=== PATIENT | male | born 1985 | race Caucasian/White ===

== ENCOUNTER 2025-02-02 18:05 | Emergency (ER) | payer SELFPAY ==
[2025-02-02 18:12] VITALS: BP 152/85; PULSE 83; RESP 16; TEMP 36.8; O2SAT 97; BMI 30.8
--- NOTE | 2025-02-02 18:18 | ECG_ITS ---
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 Measurements Intervals [place] Rate: 83 P: 48 LA: 136 QRS: 31 QRSD: 116 T: 15 QT: 353 QTc: 417 Interpretive Statements SINUS RHYTHM MODERATE INTRAVENTRICULAR CONDUCTION DELAY [110+ ms QRS DURATION] No previous ECG available for comparison Electronically Signed On 02-03-2025 07:39:09 CDT by Evans Vuong M.D. [email or web address]
--- NOTE | 2025-02-02 18:57 | XRR_ITS ---
PROCEDURE INFORMATION: Exam: XR Chest Exam date and time: 02/02/2025 9:58 PM Age: 39 years old Clinical indication: Chest pressure; C/O chest pain; Additional info: Cp TECHNIQUE: Imaging protocol: Radiologic exam of the chest. Views: 1 view. COMPARISON: No relevant prior studies available. FINDINGS: Lungs: Unremarkable. No consolidation. Pleural spaces: Unremarkable. No pleural effusion. No pneumothorax. Heart/Mediastinum: Unremarkable. No cardiomegaly. Bones/joints: Unremarkable. XR/XR chest 1V portable [id number] IMPRESSION: No acute cardiopulmonary findings.
[2025-02-02 19:45] LABS: Basophils # 0.1 10^3/uL (0.0-0.1); Basophils % 0.7 %; Eosinophils # 0.2 10^3/uL (0.0-0.8); Eosinophils % 2.4 %; Hematocrit 43.8 % (37-53); Lymphocytes # 4.3 10^3/uL (0.8-4.8); Lymphocytes % 42.4 %; Mean Corpuscular Hemoglobin 29.7 pg (27-33); Mean Corpuscular Volume 87.3 fl (82-101); Mean Platelet Volume 10.8 fL (7.4-10.4); Monocytes # 0.8 10^3/uL (0.2-0.9); Monocytes % 7.7 %; Neutrophils # 4.68 10^3/uL (1.8-7.7); Neutrophils % 46.5 %; Nucleated Red Blood Cells % 0 %; Platelet Count 268 10^3/cmm (157-399); Red Blood Count 5.02 10^6/uL (3.85-5.65); Red Cell Distribution Width 12.7 % (12.1-15.1); White Blood Count 10.07 10^3/uL (3.29-11.43)
[2025-02-02 20:08] LABS: Anion Gap 16.8 (5-19); Blood Urea Nitrogen 19 mg/dL (6-20); Calcium 9.8 mg/dL (8.5-10.5); Carbon Dioxide 26 mmol/L (22-29); Chloride 102 mmol/L (98-107); Creatinine Clr Calc Pharmacy 115.0122; Glomerular Filtration Rate 82.8 mL/min (90-130); Glucose 99 mg/dL (65-115); Osmolality Calculated 294 mOsm/kg (285-295); Potassium 3.8 mmol/L (3.5-5.1); Sodium 141 mmol/L (136-145)
[2025-02-02 21:23] LABS: Troponin(5th) Baseline < 6 ng/L (0-15)
[2025-02-02 21:44] LABS: Troponin 5 2HR < 6.0 ng/L (0-15); Troponin 5 2HR Delta 0 ABS# (0-10)
--- NOTE | 2025-02-02 22:20 | ECG_ITS ---
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 Measurements Intervals [place] Rate: 66 P: 39 MD: 165 QRS: 27 QRSD: 118 T: 15 QT: 373 QTc: 393 Interpretive Statements SINUS RHYTHM MODERATE INTRAVENTRICULAR CONDUCTION DELAY [110+ ms QRS DURATION] Compared to ECG 02/02/2025 18:12:58 No significant changes Electronically Signed On 02-03-2025 07:44:44 CDT by Evans Vuong M.D. [email or web address]
--- NOTE | 2025-02-02 23:54 | W.ED.CHESTPA ---
HPI - Chest Pain General: Chief Complaint: Chest Pain Stated Complaint: CP pain in heart Time Seen by Provider: 02/02/25 21:55 Source: patient Mode of arrival: ambulatory Limitations: no limitations History of Present Illness: Patient is a 39-year-old male who presents emergency department complaining of left chest pain chronically for the past few months. States he does not see a regular doctor does not take any medications, he was concerned while after a binge drinking episode a couple days ago his left chest pain worsened and noted that this has been constant since. States that it is worsened with exertion, he intermittently has been get short of breath. He states that he also thinks it is just stress related. No previous cardiac history reported. Does not take any medications. He is not having any pain at this time. No other symptoms. When he did have the pain, denied any radiation. MD complaint: chest pain Onset (ago): month(s) Timing of current episode: episodic Prior episodes: Yes Onset: during exertion Pain location: left chest Pain radiation: none Severity: moderate Relieving factors: nothing Exacerbating factors: exertion Associated symptoms: Reports dyspnea; Deny abdominal pain, fever(s), nausea, palpitations or vomiting Treatment prior to arrival: none Related Data Allergies Allergy/AdvReac Type Severity Reaction Status Date / Time No Known Allergies Allergy Verified 02/02/25 18:18 Review of Systems General: Reports: 10 or more systems reviewed and unremarkable except in HPI and below Const: Denies: fever(s), chills or fatigue Eyes: Denies: change in vision ENMT: Denies: throat pain, ear or mastoid pain or nasal discharge Card: Reports: chest pain; Denies: palpitations, swelling of feet/ankles or lightheadedness Resp: Reports: dyspnea; Denies: productive cough or wheezing GI: Denies: abdominal pain, nausea, vomiting, diarrhea or constipation : Denies: flank pain, difficulty urinating, dysuria or urinary frequency Musc: Denies: neck pain, back pain or joint pain Skin/Breast: Denies: rash Neuro: Denies: headache(s), numbness in extremities or weakness in extremities Physical Exam Const: COMMON NORMALS: no acute distress, patient oriented x3 and no limitations GENERAL APPEARANCE: cooperative, comfortable and well developed ORIENTATION/CONSCIOUSNESS: Yes awake, Yes oriented to person, Yes oriented to place and Yes oriented to time HENMT: COMMON NORMALS: normocephalic, atraumatic and hearing grossly normal bilaterally HEAD & SCALP: normocephalic and atraumatic Eye: COMMON NORMALS: Equal, round and reactive pupils present, EOMs intact bilaterally and conjunctivae normal CONJUNCTIVA: Yes conjunctivae normal PUPIL: Yes Equal, round and reactive pupils present Neck/C-Spine: COMMON NORMALS: full ROM, supple and no JVD Resp: COMMON NORMALS: normal respiratory effort, No retractions, No use of accessory muscles and clear to auscultation bilaterally AUSCULTATION: clear to auscultation bilaterally Cardio: COMMON NORMALS: no JVD, regular rate, regular rhythm, No clicks present (Cardio), No murmurs present (Cardio) and No rub (Cardio) RATE: regular rate RHYTHM: regular rhythm Extremity: COMMON NORMALS: normal to inspection, full ROM and capillary refill normal Neuro: COMMON NORMALS: patient oriented x3, moves all extremities, no focal motor deficits and no sensory deficits noted SENSORIUM/ORIENTATION: Yes oriented to person, Yes oriented to place and Yes oriented to time Psych: COMMON NORMALS: mental status grossly normal and Normal thought process present THOUGHT PROCESS: Normal thought process present Skin: COMMON NORMALS: no rashes or lesions noted GENERAL SKIN EXAM: no rashes or lesions noted Course Vital Signs: Vital signs: Vital Signs Temperature 98.2 F 02/02/25 18:12 Pulse Rate 83 02/02/25 18:12 Respiratory Rate 16 02/02/25 18:12 Blood Pressure 152/85 02/02/25 18:12 Pulse Oximetry 97 02/02/25 18:12 Oxygen Delivery Me thod Room Air 02/02/25 18:12 [facility] - Chest Pain Medical Decision Making This patient presented with couple months of chest pain, had a binging episode couple days ago and has been worse since. Physical exam is unremarkable. Vitals have been unremarkable. His baseline troponin was normal, repeat troponin normal. EKG showed normal sinus rhythm with no acute STEMI or other arrhythmias. Chest x-ray normal. I do not suspect ACS at this time, but I will refer him to outpatient PCP so that he can get further cardiac workup. Did tell him to return with any new or worsening, he verbalized understanding. Lab Data 02/02/25 19:21 02/02/25 19:21 Radiology Impressions Chest X-Ray 02/02/25 18:57 IMPRESSION: No acute cardiopulmonary findings. Laboratory Results WBC 10.07 10^3/uL (3.29-11.43) 02/02/25 19: RBC 5.02 10^6/uL (3.85-5.65) 02/02/25 19:21 Hgb 14.90 g/dL (11.27-16.99) 02/02/25 19: Hct 43.8 % (37-53) 02/02/25 19: MCV 87.3 fl (82-101) 02/02/25 19: MCH 29.7 pg (27-33) 02/02/25 19: MCHC 34.0 g/dL (30-55) 02/02/25 19: RDW 12.7 % (12.1-15.1) 02/02/25 19: Plt Count 268 10^3/cmm (157-399) 02/02/25 19: MPV 10.8 fL (7.4-10.4) H 02/02/25 19: Neut % (Auto) 46.5 % 02/02/25 19: Lymph % (Auto) 42.4 % 02/02/25 19: Teller % (Auto) 7.7 % 02/02/25 19: Eos % (Auto) 2.4 % 02/02/25 19: Baso % (Auto) 0.7 % 02/02/25: Neut # (Auto) 4.68 10^3/uL (1.8-7.7) 02/02/25 19: Lymph # (Auto) 4.3 10^3/uL (0.8-4.8) 02/02/25 19: Teller # (Auto) 0.8 10^3/uL (0.2-0.9) 02/02/25 19: Eos # (Auto) 0.2 10^3/uL (0.0-0.8) 02/02/25 19: Baso # (Auto) 0.1 10^3/uL (0.0-0.1) 02/02/25 19: Nucleated RBC % (auto) 0 % 02/02/25 19: Nucleated RBCs # 0.0 /100WBC 02/02/25 19:21 Sodium 141 mmol/L (136-145) 02/02/25 19:21 Potassium 3.8 mmol/L (3.5-5.1) 02/02/25 19:21 Chloride 102 mmol/L (98-107) 02/02/25 19:21 Carbon Dioxide 26 mmol/L (22-29) 02/02/25 19:21 Anion Gap 16.8 (5-19) 02/02/25 19:21 BUN 19 mg/dL (6-20) 02/02/25 19:21 Creatinine 1.0 mg/dL (0.7-1.2) 02/02/25 19:21 GFR Calculation 82.8 mL/min (90-130) L 02/02/25 19:21 Glucose 99 mg/dL (65-115) 02/02/25 19:21 Calculated Osmolality 294 mOsm/kg (285-295) 02/02/25 19:21 Calcium 9.8 mg/dL (8.5-10.5) 02/02/25 19:21 Troponin T Baseline < 6 ng/L (0-15) 02/02/25 19:21 Troponin T 120 Minute < 6.0 ng/L (0-15) 02/02/25 20:47 Delta Troponin T 0 ABS# (0-10) 02/02/25 20:47 All radiology interpretation(s) finalized by discharge Discharge Plan Discharge Patient Disposition: Home Clinical Impression: Chest pain Condition: Stable Discharge Orders: Discharge ED (Routine); Ordered 02/02/25 Ordered By: Jeff Barber Patient Instructions: Chest Pain (ED) Activity Restrictions/Additional Instructions: Follow-up with regular doctor as we have established, await call. May call patient records in the morning at . Please return with any worsening of your chest pain, or general worsening of your condition. Print Language: Albanian Coding Level of Care Code ED Compliance Coordinator for Mandeep Wilkes
--- NOTE | 2025-02-06 08:09 | DCPLANNER ---
Message sent all clinics to establish a PCP
== END 2025-02-02 23:11 | disposition home or self-care (01) ==
PROVIDERS: Emergency Medicine; Emergency Provider Physician Assistant
DX: R07.9 Chest pain, unspecified (principal)
CPT/HCPCS: 36415; 71045; 80048; 84484; 85025; 93005; 99285